=== PATIENT | female | born 1975 | race Hispanic/Latino ===

== ENCOUNTER 2017-09-07 09:33 | Day surgery (SDC) | payer OTHER ==
[2017-09-07 09:45] VITALS: BMI 21.1
[2017-09-07 10:40] LABS: HEMOGLOBIN 13.4 g/dL (12.0-16.0); MEAN CELL VOLUME 94.7 fl (81.0-99.0); MEAN CORPUSCULAR HEMOGLOBIN 32.1 pg (27.0-31.0); MEAN CORPUSCULAR HGB CONC 33.9 g/dL (33.0-37.0); RBC 4.19 Mil/uL (3.80-5.20); RED CELL DISTRIBUTION WIDTH 12.2 % (11.5-14.5)
[2017-09-07] MEDS ORDERED: Bupivacaine 0.5% Inj(30mL) ONE (10:47)
[2017-09-07] MEDS ORDERED: Lidocaine 4% (Laryng-O-Jet) Kit MM ONE (11:21)
[2017-09-07] MEDS ORDERED: Midazolam 2 MG/2 ML VIAL ONE (11:21)
[2017-09-07] MEDS ORDERED: Rocuronium 10 mg/ml (5 ml) ONE (11:21)
[2017-09-07] MEDS ORDERED: Succinylcholine 200 mg/10 ml Inj IV ONE (11:21)
[2017-09-07] MEDS ORDERED: ePHEDrine 50 mg/ml Inj ONE (11:21)
[2017-09-07] MEDS ORDERED: Propofol 10 mg/ml Inj (20 ML) ONE (11:21)
[2017-09-07] MEDS ORDERED: Dexamethasone 4 mg/1 ml ONE (12:20)
[2017-09-07] MEDS ORDERED: Neostigmine Methylsulfate 3mg/3ml Syringe IV ONE (12:36)
[2017-09-07] MEDS ORDERED: Lactated Ringer's 1,000 ML IV ONE ×3 (13:04→13:06)
[2017-09-07] MEDS ORDERED: Sodium Chloride 0.9% 1,000 ML IV ONE (13:07)
[2017-09-07] MEDS ORDERED: Oxycodone/Acetaminophen 5/325 mg Tab PO PRN (13:53)
[2017-09-07] MEDS ORDERED: Lactated Ringer's 1,000 ML IV SCH (14:00)
[2017-09-07 16:16] VITALS: RESP 18
[2017-09-07 19:45] VITALS: BP 108/68; PULSE 75; TEMP 98.6; O2SAT 99
--- NOTE | 2017-10-03 14:57 | OP ---
PROCEDURE DATE: 09/07/2017 PREOPERATIVE DIAGNOSES: Pelvic pain, dysmenorrhea, dyspareunia, rule out endometriosis. POSTOPERATIVE DIAGNOSES: Pelvic pain, dysmenorrhea, dyspareunia, rule out endometriosis plus pelvic endometriosis. PROCEDURE PERFORMED: Cystoscopy with bilateral ureteral catheterization, diagnostic hysteroscopy, robotic laparoscopy, excision of endometriosis, and bilateral ureterolysis. SURGEON: Luigi Morillo MD CAR DELIVERER: Anupam Hernandez MD COMPLICATIONS: None. SPECIMENS: Multiple specimens sent to pathology. INDICATION FOR THE PROCEDURE: This patient is a 42-year-old female with a history of dysmenorrhea, dyspareunia, bladder pain, and pelvic pain, suspicion for endometriosis. She was resistant to medical therapy. On examination in the office, she revealed acute tenderness especially on the left hand side. Prior to the surgery, she was counseled with regards to all the risks and benefits of the procedure and she signed the consent and was taken to the OR. DESCRIPTION OF PROCEDURE: After adequate anesthesia was obtained, the patient was placed in dorsal lithotomy position and she was prepped and draped. The surgeon was gowned and gloved. At this point, a great attention was placed and making sure that the patient was extensively padding on all the areas prone to pressure and the hips were not hyperextended or hyperflexed, but in natural position. At this point, a procedure was started after taking a time-out according to the hospital policy. At this point, the cystoscope was inserted into the bladder. The bladder was distended and both ureters appeared to be in normal anatomical position. There were no lesions or tumors in the bladder. Attention was on the left ureter, which was cannulate utilizing a 5[place] opened-ended catheter and 5 mL of IC-Green were injected into the bladder. At this point, on the contralateral ureter, again the ureter was cannulized and all the way to the distal ureter and 5 mL of IC-Green were injected into the distal ureter. The cannula was then removed and a Brown was placed in the bladder. At this point, speculum was placed in vagina. The anterior lip of the cervix was grasped and hysteroscopy was performed revealing presence of normal cavity without any polyps or lesions. At this point, attention was on the abdomen where an open laparoscopy was performed by making skin incision in the infraumbilical area and entered in peritoneum in a blunt fashion. Cannula was then placed and the abdomen was insufflated. At this point, the upper abdomen was visualized, appeared to be free of lesions, tumors or any endometriosis implants. The pelvis was visualized revealing evidence of endometriosis implants on the pelvic sidewalls. The ovaries appeared to be normal and fallopian tube appeared to be normal. At this point, additional trocars were inserted in left upper quadrant, left mid quadrant, and right upper quadrant. The [employer] Xi robot was docked. The procedure was started first by elevating the left ovary, identifying an area of endometriosis and left pelvic sidewall by the ureter. The ureter was identified utilizing on and off fluorescent technology utilizing . At that point, the peritoneum was entered superior to the lesions and the ureter was progressively lateralized and the peritoneum medialized and full excision was performed on the peritoneum including endometriosis. Again on the left pelvic fossa, an additional area of endometriosis was identified and progressively excised with great care to avoid the vessels. At this point, attention was on the right hand side of the pelvis where ureter an area of endometriosis was identified. Again, the ureter was identified utilizing fluorescent technology. The ureter was lateralized as well as peritoneum was on the medial side and full dissection was performed, obtaining a sample of peritoneum that was then sent to pathology. At this point, it was checked for hemostasis, appeared to be excellent. Areas of peritoneum revealing some areas of inflammation, but not endometriosis, were also ablated and cul-de-sac was also ablated. At that point, it was checked for hemostasis and appeared to be excellent. The abdomen was irrigated. The [employer] robot was undocked. The abdomen was desufflated. The incision was closed in layers with 0 PDS for the fascia and 4-0 Monocryl for the skin. The patient was then awoken up and taken to the recovery room in excellent condition. Luigi Morillo MD
== END 2017-09-07 19:00 | disposition home or self-care (01) ==
LOC: H.OPSURG 09:33
PROVIDERS: ATTEND Obstetrics & Gynecology Reproductive Endocrinology
DX: N80.1 Endometriosis of ovary (principal); R10.2 Pelvic and perineal pain; N94.6 Dysmenorrhea, unspecified
CPT/HCPCS: 36415; 58662; 85027; 86850; 86900; 88305; C1729; J0330; J0690; J1100; J1170; J2001; J2250; J2405; J2704; J2710; J3010; J7030; J7040; J7120